=== PATIENT | male | born 1970 | race Caucasian/White ===

== ENCOUNTER 2018-07-05 21:43 | Inpatient (IN) | payer BC ==
[2018-07-05 21:50] VITALS: BMI 31.8
--- NOTE | 2018-07-05 22:11 | PDOC ---
History of Present Illness - General Chief Complaint: Pain Stated Complaint: PAIN Time Seen by Provider: 07/05/18 22:04 History Source: Patient Exam Limitations: No Limitations - History of Present Illness Initial Comments: 47 yo M w a pmh of diverticulitis, psoriasis, cellulitis, rhabdomyolysis presents to the ER with 2 days of Left Abdominal pain and scrotal pain. He states he woke up yesterday morning and he believes he sat down the wrong way when all of a sudden he began experiencing the left abdominal pain and the left scrotal pain. He thought it would go away but it didn't and the pain only worsened. Today he reports it has been difficult for him to sit down because his pain. The pain is 8/10 and is squeezing in character. The pain radiates to the suprapubic region. He has not taken any medications for the pain. The pain was bothering him to the point where he felt compelled to leave his super [employer] libertarian to come to the ED to be evaluated. He denies any associated fevers, nausea, vomiting, dysuria, frequency, urgency, hematuria, back pain, joint pain, chest pain, SOB, difficulty breathing, headache, diarrhea, constipation, or other concerns. PCP: Karlie Agosto PSH: None reported Social Hx: Smokes 1 PPD, drinks recreationally Allergies: NKA, NKDA Past History - Past Medical History Allergies/Adverse Reactions: Allergies Allergy/AdvReac Type Severity Reaction Status Date / Time No Known Allergies Allergy Verified 07/05/18 21:47 Home Medications: Ambulatory Orders Cephalexin [Keflex] 500 mg PO BID #8 capsule 10/12/14 levoFLOXacin [Levaquin -] 500 mg PO DAILY #10 tablet 07/06/18 Anemia: No Asthma: No COPD: No - Immunization History Immunization Up to Date: Yes - Suicide/Smoking/Psychosocial Hx Smoking History: Current every day smoker Have you smoked in the past 12 months: Yes Number of Cigarettes Smoked Daily: 10 Information on smoking cessation initiated: No 'Breaking Loose' booklet given: 10/08/14 Hx Alcohol Use: No Drug/Substance Use Hx: Yes (Marijuana) Substance Use Type: None Review of Systems - Review of Systems Able to Perform ROS?: Yes Comments:: CONSTITUTIONAL: Absent: fever, no chills, no fatigue EYES: Absent: visual changes ENT: Absent: ear pain, no sore throat CARDIOVASCULAR: Absent: chest pain, no palpitations RESPIRATORY: Absent: cough, no SOB GI: Present Abdominal pain, testicular pain Absent: ano nausea, no vomiting, no constipation, no diarrhea GENITOURINARY: Absent: dysuria, no frequency, no hematuria MUSKULOSKELETAL: Absent: back pain, no arthralgia, no myalgia SKIN: Absent: rash NEURO: Absent: headache *Physical Exam - Vital Signs Last Vital Signs Temp Pulse Resp BP Pulse Ox 97.9 F 119 H 20 148/77 96 07/05/18 21:48 07/05/18 21:48 07/05/18 21:48 07/05/18 21:48 07/05/18 21:48 - Physical Exam Comments: GENERAL: Well-appearing, well-nourished. No apparent distress. HEENT: Normocephalic, atraumatic. PERRL, EOM intact. CARDIOVASCULAR: Normal S1, S2. Tachycardic rate and regular rhythm. PULMONARY: No evidence of respiratory distress. Lungs clear to auscultation bilaterally. No wheezing, rales or rhonchi. ABDOMEN: Significant LLQ abdominal TTP. EXTREMITIES: Normal ROM in all four extremities. No gross deformities. SKIN: Warm, dry. No rash NEUROLOGICAL: No focal neurological deficits. Male Genitalia: positive: normal genitalia, testicular tenderness (Left sided), epididymus tender. negative: discharge, testicular mass, inguinal hernia, hernia, CVAT Moderate Sedation - Procedure Monitoring Vital Signs: Procedure Monitoring Vital Signs Temperature 97.9 F 07/05/18 21:48 Pulse Rate 119 H 07/05/18 21:48 Respiratory Rate 20 07/05/18 21:48 Blood Pressure 148/77 07/05/18 21:48 O2 Sat by Pulse Oximetry (%) 96 07/05/18 21:48 ED Treatment Course - LABORATORY CBC & Chemistry Diagram: 07/05/18 23:00 07/05/18 23:00 Medical Decision Making - Medical Decision Making 47 yo M w a pmh of psoriasis presents to the ER with 2 days of Left scrotal pain. - VS significant for tachycardia DDx IBNLT: Testicular torsion, epidydimitis, orchitis, mumps, hernia, UTI, kindey stones, prostatitis Plan: Labs, Urine, testicular US, analgesia, re-assess. Testicular US shows left sided varicocele Abdominal CTAP: - Received call from radiologist numerical control tool programmer - - Patient has diverticulitis. - Possible microperforation in one of the diverticula no abscess, no free air - Contained microperforation. Paged surgery - Dr. Juventino Castaneda. - He agrees with plan to start antibiotics in the ER Levo and flagyl - Will make patient NPO and start IV hydration. Patient iss Septic - Elevated WBC, tachycardic - Source of infection - Abdomen *DC/Admit/Observation/Transfer Diagnosis at time of Disposition: Diverticulitis of colon with perforation, Diverticulitis, Sepsis - Discharge Dispostion Condition at time of disposition: Guarded Decision to Admit order: Yes - Prescriptions Prescriptions: levoFLOXacin [Levaquin -] 500 mg PO DAILY #10 tablet - Referrals Referrals: Karlie Flores MD [Primary Care Provider] - - Patient Instructions - Post Discharge Activity
[2018-07-05] MEDS ORDERED: ACETAMINOPHEN 325 MG TABLET (FP) PO ONE (22:15)
[2018-07-05] MEDS ORDERED: ACETAMINOPHEN 325 MG TABLET (FP) ONE (22:23)
--- NOTE | 2018-07-05 23:05 | PDOC ---
Attending Attestation - [facility] HPI: 07/05/18 23:45 The patient is a 47 year old male with a significant past medical history of psoriasis, cellulitis, rhabdomyolysis who presents to the ED with 2 days of progressively worsening left scrotal pain. Patient reports a sudden onset of left sided scrotal pain after he sat down the wrong way. Patient states the pain is a 8/10, squeezing like sensation, worsened when sitting down and radiates to his suprapubic region. Denies fever or chills. Denies nausea, vomiting, or diarrhea. Denies dysuria, frequency, urgency, or hematuria. Denies chest pain or shortness of breath. Denies any other symptoms. - Physicial Exam PE: 07/06/18 00:19 GENERAL: Well developed, well nourished. Awake and alert. No acute distress. HEENT: Normocephalic, atraumatic. PERRLA, EOMI. No conjunctival pallor. Sclera are non- icteric. Moist mucous membranes. Oropharynx is clear. NECK: Supple. Full ROM. No JVD. Carotid pulses 2+ and symmetric, without bruits. No thyromegaly. No lymphadenopathy. CARDIOVASCULAR: Regular rate and rhythm. No murmurs, rubs, or gallops. Distal pulses are 2+ and symmetric. PULMONARY: No evidence of respiratory distress. Lungs clear to auscultation bilaterally. No wheezing, rales or rhonchi. ABDOMINAL: + rebound tenderness in the left lower quadrant. Soft. Non-distended. No rebound or guarding. No organomegaly. Normoactive bowel sounds. MUSCULOSKELETAL Normal range of motion at all joints. No bony deformities or tenderness. No CVA tenderness. EXTREMITIES: No cyanosis. No clubbing. No edema. No calf tenderness. SKIN: Warm and dry. Normal capillary refill. No rashes. No jaundice. NEUROLOGICAL: Alert, awake, appropriate. Cranial nerves 2-12 intact. No deficits to light touch and temperature in face, upper extremities and lower extremities. No motor deficits in the in face, upper extremities and lower extremities. Normoreflexic in the upper and lower extremities. Normal speech. Toes are down- going bilaterally. Gait is normal without ataxia. PSYCHIATRIC: Cooperative. Good eye contact. Appropriate mood and affect. <Yady De - Last Filed: 07/06/18 00:19> - Resident Resident Name: Khang Foster - ED Attending Attestation I have performed the following: I have examined & evaluated the patient, The case was reviewed & discussed with the resident, I agree w/resident's findings & plan, Exceptions are as noted - Medical Decision Making 07/06/18 02:39 ct scan findings: DIVERTICULITIS w possible micro perforation. Dr Juventino Castaneda, surgeon, was contacted and will be the cardiology consultant pt placed on antibiotics and admitted <Tiara Hare - Last Filed: 07/06/18 02:40> Attestations - Attestations 07/05/18 23:45 Documentation prepared by Yady De, acting as biomedical engineering technologist for Tiara Hare MD. <Yady De - Last Filed: 07/06/18 00:19>
[2018-07-05 23:34] LABS: URINE APPEARANCE CLEAR; URINE BILIRUBIN NEGATIVE (<2.0 mg/dL); URINE COLOR LTYELLOW; URINE GLUCOSE (UA) NEGATIVE (NEGATIVE); URINE KETONE NEGATIVE (NEGATIVE); URINE LEUK ESTERASE NEGATIVE (NEGATIVE); URINE NITRITE NEGATIVE (NEGATIVE); URINE PROTEIN NEGATIVE (NEGATIVE); URINE UROBILINOGEN NEGATIVE mg/dL (0.2-1.0)
[2018-07-05 23:50] LABS: EOS % 0.7 % (0-4.5); HEMATOCRIT 45.6 % (35.4-49); HEMOGLOBIN 16.3 GM/dL (11.7-16.9); LYMPH % 15.6 % (8-40); MCH 31.7 pg (25.7-33.7); MCHC 35.8 g/dl (32.0-35.9); MEAN CELL VOLUME 88.5 fl (80-96); MEAN PLT VOLUME 9.8 fl (7.5-11.1); MONO % 5.9 % (3.8-10.2); NEUT % 76.8 % (42.8-82.8); PLATELET COUNT 189 K/MM3 (134-434); RBC 5.16 M/mm3 (4.00-5.60); RDW 13.3 % (11.9-15.9); WHITE BLOOD COUNT 16.2 K/mm3 (4.0-10.0)
[2018-07-06] MEDS ORDERED: KETOROLAC TROMETHAMINE 30 MG/1 ML VIAL IVPUSH ONE (00:10)
[2018-07-06 00:16] LABS: ALK PHOS 84 U/L (45-117); ANION GAP 6 MMOL/L (8-16); BILIRUBIN,TOTAL 0.3 mg/dL (0.2-1); BLOOD UREA NITROGEN 19 mg/dL (7-18); CALCIUM 8.4 mg/dL (8.5-10.1); CHLORIDE 110 mmol/L (98-107); CO2 25 mmol/L (21-32); CREATININE 1.1 mg/dL (0.55-1.3); GLUCOSE,RANDOM 101 mg/dL (74-106); SGOT/AST 16 U/L (15-37); SGPT/ALT 28 U/L (13-61); SODIUM 141 mmol/L (136-145); TOT PROT 7.3 g/dl (6.4-8.2)
[2018-07-06] MEDS ORDERED: SODIUM CHLORIDE 1,000 ML IV STA (00:18)
[2018-07-06] MEDS ORDERED: KETOROLAC TROMETHAMINE 30 MG/1 ML VIAL ONE (01:00)
[2018-07-06] MEDS ORDERED: ACETAMINOPHEN 325 MG TABLET (FP) ONE (01:00)
[2018-07-06] MEDS: SODIUM CHLORIDE 1,000 ML IV SCH ×2 (02:46→11:11)
--- NOTE | 2018-07-06 03:52 | PN ---
Teaching Attending Note Name of Resident: Radha Gutierres ATTENDING PHYSICIAN STATEMENT I saw and evaluated the patient. I reviewed the resident's note and discussed the case with the resident. I agree with the resident's findings and plan as documented. SUBJECTIVE: Patient is a 47 year old man with PMH of diverticulitis, tobacco use, psoriasis , cellulitis and rhabdomyolysis who presents to the ER with 2 days of left abdominal pain and left scrotal pain. He states he woke up yesterday morning and he believes he sat down the wrong way when all of a sudden he began experiencing the left abdominal pain and the left scrotal pain. He thought it would go away but it didn't and the pain only worsened. Today he reports it has been difficult for him to sit down because his pain. The pain is 8/10 and is squeezing in character. The pain radiates to the suprapubic region. He has not taken any medications for the pain. 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 He denies any associated fevers, nausea, vomiting, dysuria, frequency , urgency, hematuria, back pain, joint pain, chest pain, SOB, difficulty breathing, headache, diarrhea or constipation. OBJECTIVE: Alert Vital Signs Period Temp Pulse Resp BP Sys/Giraldo Pulse Ox Last 24 Hr 97.9 F 119 20 148/77 96 HEENT: No Jaundice, eye redness or discharge, PERRLA, EOMI. Normocephalic, atraumatic. External ears are normal and hearing is grossly intact. No nasal discharge. Neck: Supple, nontender. No palpable adenopathy or thyromegaly. No JVD Chest: Good effort. Clear to auscultation and percussion. Heart: Regular. No S3, rub or murmur Abdomen: Not distended, soft, LLQ tenderness and no HSM. No rebound or guarding. Normoactive bowel sounds. Ext: Peripheral pulses intact. No leg edema. Tender left scrotum. Skin: Warm and dry. No petechiae, rash or ecchymosis. Neuro: Alert. Oriented x3. CN 2-12 grossly intact. Sensation grossly intact in all four extremities and DTR are symmetric. Current Medications Generic Name Dose Route Start Last Admin Trade Name Freq PRN Reason Stop Dose Admin Sodium Chloride 1,000 mls @ 125 mls/hr 07/06/18 01:45 Normal Saline - IV ASDIR [facility] Home Medications Medication Instructions Recorded Cephalexin [Keflex] 500 mg PO BID #8 capsule 10/12/14 levoFLOXacin [Levaquin -] 500 mg PO DAILY #10 tablet 07/06/18 Abnormal Lab Results 07/05/18 07/05/18 23:00 23:00 WBC 16.2 H Absolute Neuts (auto) 12.4 H Chloride 110 H Anion Gap 6 L BUN 19 H Calcium 8.4 L ASSESSMENT AND PLAN: 1. Sepsis due to Sigmoid diverticulitis with microperforation - Findings confirmed by CT scan - no abscess and no free peritoneal air. EKG pending to rule out prolonged QTc. Sepsis work up done and INR pending. Being kept NPO and treated with IV NS, flagyl, levofloxacin and toradol for pain control. Surgery consulted. Will need outpatient colonoscopy after resolution of diverticulitis. Sonogram shows left testicular varicocele. Referred pain may also partly explain testicular pain and there have been multiple reports of scrotal pain in persons with sigmoid diverticulitis. Will do scrotal elevation and consult urology. 2. Tobacco Use We will provide patient all the necessary assistance to facilitate smoking cessation and prescribe Nicotine patch. 3. Obesity - Will provide patient all the necessary assistance, counseling and positive reinforcement to facilitate weight loss. Consult edge glue machine tender. 4. DVT prophylaxis - Lovenox 40 mg SQ q 24 hours. 5. Advance directives - Full code
[2018-07-06] MEDS ORDERED: KETOROLAC TROMETHAMINE 10 MG TABLET PO PRN (04:20)
--- NOTE | 2018-07-06 04:41 | HP ---
CHIEF COMPLAINT: diverticulitis w/microperf PCP: Dr. Agosto HISTORY OF PRESENT ILLNESS: 47 y/o M with PMH diverticulitis, psoriasis (not on tx), past admissions for cellulitis, rhabdo, who presents for 1 day hx LLQ pain. As per pt, yesterday AM , pt developed sudden LLQ pain that was sharp, constant, and a 5/10. As the day progressed, pt attended a [employer] green party and while there ate sandwiches. Soon after, his pain became an 8/10, thus he decided to come to the ED for further evaluation. At the time, his LLQ pain radiated into his L scrotal region. Denies MEDEIROS, fever, chills, SOB, chest pain or pressure, or changes in urinary or bowel function. States that he had a flare of diverticulitis 6-8 yrs ago, and was tx with IV abx and d/c home the following day. Was not complicated by fistula, abscess or microperforation. Does not recall which hospital he was seen at. Also mentions that he had a colonoscopy ~6 yrs ago. 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 confirmed verbally REVIEW OF SYSTEMS CONSTITUTIONAL: Absent: fever, chills, diaphoresis, generalized weakness, malaise, loss of appetite, weight change HEENT: Absent: rhinorrhea, nasal congestion, throat pain, throat swelling, difficulty swallowing, mouth swelling, ear pain, eye pain, visual changes CARDIOVASCULAR: Absent: chest pain, syncope, palpitations, irregular heart rate, lightheadedness , peripheral edema RESPIRATORY: Absent: cough, shortness of breath, dyspnea with exertion, orthopnea, wheezing, stridor, hemoptysis GASTROINTESTINAL: +abdominal pain Absent: abdominal pain, abdominal distension, nausea, vomiting, diarrhea, constipation, melena, hematochezia GENITOURINARY: +scrotal pain Absent: dysuria, frequency, urgency, hesitancy, hematuria, flank pain, genital pain MUSCULOSKELETAL: Absent: myalgia, arthralgia, joint swelling, back pain, neck pain SKIN: Absent: rash, itching, pallor HEMATOLOGIC/IMMUNOLOGIC: Absent: easy bleeding, easy bruising, lymphadenopathy, frequent infections ENDOCRINE: Absent: unexplained weight gain, unexplained weight loss, heat intolerance, cold intolerance NEUROLOGIC: Absent: headache, focal weakness or paresthesias, dizziness, unsteady gait, seizure, mental status changes, bladder or bowel incontinence PSYCHIATRIC: Absent: anxiety, depression, suicidal or homicidal ideation, hallucinations. PHYSICAL EXAMINATION Vital Signs - 24 hr 07/05/18 21:48 Temperature 97.9 F Pulse Rate 119 H Respiratory 20 Rate Blood Pressure 148/77 O2 Sat by Pulse 96 Oximetry (%) GENERAL: Resting calmly in bed. Awake, alert, and fully oriented, in no acute distress. HEAD: Normal with no signs of trauma. EYES: Pupils equal, round and reactive to light, extraocular movements intact, sclera anicteric, conjunctiva clear. EARS, NOSE, THROAT: Ears normal, nares patent, oropharynx clear without exudates. Moist mucous membranes. NECK: Normal range of motion, supple LUNGS: Breath sounds equal, clear to auscultation bilaterally. No wheezes, and no crackles. No accessory muscle use. HEART: Regular rate and rhythm, normal S1 and S2 without murmur, rub or gallop. ABDOMEN: Soft, normoactive bowel sounds. +point tenderness suprapubic region, + LLQ. +guarding GENITUOURINARY: refused scrotal exam LOWER EXTREMITIES: 2+ pt pulses, warm, well-perfused. No calf tenderness. No peripheral edema. NEUROLOGICAL: Cranial nerves II-XII intact. 5/5 motor strength in UE, LE PSYCHIATRIC: Cooperative. Good eye contact. SKIN: Warm, dry, normal turgor Laboratory Results - last 24 hr 07/05/18 07/05/18 07/05/18 23:00 23:00 23:23 WBC 16.2 H RBC 5.16 Hgb 16.3 Hct 45.6 D MCV 88.5 MCH 31.7 MCHC 35.8 RDW 13.3 Plt Count 189 MPV 9.8 Absolute Neuts (auto) 12.4 H Neutrophils % 76.8 Lymphocytes % 15.6 D Monocytes % 5.9 Eosinophils % 0.7 Basophils % 1.0 Nucleated RBC % 0 Sodium 141 Potassium 4.0 Chloride 110 H Carbon Dioxide 25 Anion Gap 6 L BUN 19 H Creatinine 1.1 Creat Clearance w eGFR > 60 Random Glucose 101 Calcium 8.4 L Total Bilirubin 0.3 AST 16 ALT 28 Alkaline Phosphatase 84 Total Protein 7.3 Albumin 4.0 Urine Color Ltyellow Urine Appearance Clear Urine pH 6.0 Ur Specific [place] 1.020 Urine Protein Negative Urine Glucose (UA) Negative Urine Ketones Negative Urine Blood Negative Urine Nitrite Negative Urine Bilirubin Negative Urine Urobilinogen Negative Ur Leukocyte Esterase Negative CTAP prelim: sigmoid diverticulitis with microperforation; small focus of air beyond sigmoid diverticulum. without abscess or free air. follow official read EKG: NSR, without acute ST-T wave changes. Qtc 417ms ASSESSMENT/PLAN: 47 y/o M with PMH diverticulitis, psoriasis (not on tx), past admissions for cellulitis, rhabdo, who presents for 1 day hx LLQ pain. #sepsis 2/2 acute sigmoid diverticulitis, with microperforation -with hx past ep diverticulitis, responded to IV abx -will c/w levaquin 750mg IVPB qd, flagyl 500 IVPB TID . to cover for gram (-), anaerobes -NPO for bowel rest -IVF, toradol for pain control -Surgery consult: Dr. Castaneda. case d/w ED staff, will see pt in AM -less likely for OR, however will do T+S, coags in case #L sided varicocele -possibly incidental -chronic constipation a/w diverticulitis can be risk fx L varicocele, affecting L testic vein -will consult urology: Dr. Arita. crm functional analyst #psoriasis -not on tx #F/E/N IV NS 125 cc/hr continue to follow lytes npo #PPX lovenox #dispo admit to M/S to be seen by sx in AM ; determine whether needs intervention follow WBC count, tachycardia Visit type - Emergency Visit Emergency Visit: Yes ED Registration Date: 07/06/18 Care time: The patient presented to the Emergency Department on the above date and was hospitalized for further evaluation of their emergent condition. - New Patient This patient is new to me today: Yes Date on this admission: 07/06/18 - Critical Care Critical Care patient: No
[2018-07-06 05:27] LABS: BASO % 0.2 % (0-2.0); EOS % 1.3 % (0-4.5); HEMATOCRIT 40.3 % (35.4-49); HEMOGLOBIN 14.2 GM/dL (11.7-16.9); LYMPH % 25.5 % (8-40); MCH 30.9 pg (25.7-33.7); MCHC 35.2 g/dl (32.0-35.9); MEAN CELL VOLUME 87.9 fl (80-96); MONO % 7.5 % (3.8-10.2); NEUT % 65.5 % (42.8-82.8); PLATELET COUNT 157 K/MM3 (134-434); RBC 4.59 M/mm3 (4.00-5.60); RDW 13.2 % (11.9-15.9); WHITE BLOOD COUNT 12.5 K/mm3 (4.0-10.0)
[2018-07-06 05:31] LABS: INR 1.11 (0.83-1.09); PROTHROMBIN TIME (PATIENT) 13.1 SEC (9.7-13.0)
[2018-07-06 05:34] LABS: ACTIVATED PTT 31.1 SECONDS (25.2-36.5)
[2018-07-06 05:46] LABS: ANION GAP 5 MMOL/L (8-16); BLOOD UREA NITROGEN 15 mg/dL (7-18); CALCIUM 7.4 mg/dL (8.5-10.1); CHLORIDE 113 mmol/L (98-107); CO2 24 mmol/L (21-32); GLUCOSE,RANDOM 104 mg/dL (74-106); PHOSPHOROUS 3.2 mg/dL (2.5-4.9); POTASSIUM 3.7 mmol/L (3.5-5.1); SODIUM 142 mmol/L (136-145)
--- NOTE | 2018-07-06 09:50 | EKG ---
Test Reason : Blood Pressure : / mmHG Vent. Rate : 074 BPM Atrial Rate : 074 BPM P-R Int : 164 ms QRS Dur : 090 ms QT Int : 376 ms P-R-T Axes : 034 027 023 degrees QTc Int : 417 ms NORMAL SINUS RHYTHM NORMAL ECG NO PREVIOUS ECGS AVAILABLE Confirmed by BETTY NARVAEZ MD ([id number]) on 07/06/2018 9:49:38 AM Referred By: Confirmed By:BETTY NARVAEZ MD
[2018-07-06] MEDS: ENOXAPARIN NA (PORCINE) 40 MG/0.4 ML DISP.SYRIN SQ SCH (10:50)
[2018-07-06] MEDS ORDERED: MORPHINE SULFATE 2 MG/ML VIAL IVPUSH PRN (11:00)
--- NOTE | 2018-07-06 12:22 | CONSULT ---
Consult Reason for Consultation:: Acute diverticulitis - History of Present Illness History of Present Illness: The patient is a 47 year old male with a significant past medical history of psoriasis, cellulitis, rhabdomyolysis who presents to the ED with 2 days of progressively worsening left scrotal pain. Patient reports a sudden onset of left sided scrotal pain after he sat down the wrong way. Patient states the pain is a 8/10, squeezing like sensation, worsened when sitting down and radiates to his suprapubic region. Denies fever or chills. Denies nausea, vomiting, or diarrhea. Denies dysuria, frequency, urgency, or hematuria. Denies chest pain or shortness of breath. Denies any other symptoms. - History Source History Provided By: Patient - Past Medical History ENT: Yes: Allergic Rhinitis, Sinusitis Additional Medical History: tatoos- all old - Past Surgical History Past Surgical History: Yes: None - Alcohol/Substance Use Hx Alcohol Use: No - Smoking History Smoking history: Current every day smoker Have you smoked in the past 12 months: Yes Aproximately how many cigarettes per day: 10 - Social History Usual Living Arrangement: With Spouse ADL: Independent Occupation: on site property manager Home Medications - Allergies Allergies/Adverse Reactions: Allergies Allergy/AdvReac Type Severity Reaction Status Date / Time No Known Allergies Allergy Verified 07/05/18 21:47 - Home Medications Home Medications: Ambulatory Orders Cephalexin [Keflex] 500 mg PO BID #8 capsule 10/12/14 levoFLOXacin [Levaquin -] 500 mg PO DAILY #10 tablet 07/06/18 Review of Systems - Review of Systems Gastrointestinal: reports: Abdominal Pain Genitourinary: reports: Testicular Pain Physical Exam Vital Signs: Vital Signs Temperature 98.6 F 07/06/18 09:00 Pulse Rate 71 07/06/18 09:00 Respiratory Rate 16 07/06/18 09:00 Blood Pressure 143/82 07/06/18 09:00 O2 Sat by Pulse Oximetry (%) 96 07/06/18 05:24 Constitutional: Yes: Well Nourished, No Distress Eyes: Yes: Conjunctiva Clear HENT: Yes: Normocephalic Neck: Yes: Supple Cardiovascular: Yes: Regular Rate and Rhythm Respiratory: Yes: CTA Bilaterally Gastrointestinal: Yes: Soft, Abdomen, Obese, Tenderness (at LLQ) Labs: CBC, BMP 07/06/18 05:10 07/06/18 05:10 Imaging - Results Cat Scan: Report Reviewed, Image Reviewed Problem List - Problems (1) Diverticulitis of colon with perforation Assessment/Plan: [place] 1 perfoarated diverticulitis Continue IV abx and bowel rest May start liquid diet when clinically improved No surgical intervention necessary at this time GI, DVT prophylaxis Code(s): K57.20 - DVTRCLI OF LG INT W PERFORATION AND ABSCESS W/O BLEEDING
--- NOTE | 2018-07-06 14:17 | CON.GI ---
Consult Consult Specialty:: GI Referred by:: Medicine Reason for Consultation:: acute sigmoid diverticulitis w microperforation - History of Present Illness Chief Complaint: LLQ/suprapubic pain History of Present Illness: 47M admitted for acute onset LLQ/suprapubic pain Friday. Initially thought it was due to [place] he had eaten the night before, but pain did not remit after bm and worsened so came to hospital. No fevers/chills. reports he had colonoscopy 8-9 years ago after what sounds like diverticulitis and antibiotic treatment, nothing found except diverticulosis. Pt denies rectal bleeding, weight loss. Was fine until yesterday. - History Source History Provided By: Patient Limitations to Obtaining History: No Limitations - Past Medical History ENT: Yes: Allergic Rhinitis, Sinusitis Additional Medical History: tatoos- all old - Past Surgical History Past Surgical History: Yes: None - Alcohol/Substance Use Hx Alcohol Use: No - Smoking History Smoking history: Current every day smoker Have you smoked in the past 12 months: Yes Aproximately how many cigarettes per day: 10 - Social History Usual Living Arrangement: With Spouse ADL: Independent Occupation: on site property manager Home Medications - Allergies Allergies/Adverse Reactions: Allergies Allergy/AdvReac Type Severity Reaction Status Date / Time No Known Allergies Allergy Verified 07/05/18 21:47 - Home Medications Home Medications: Ambulatory Orders Cephalexin [Keflex] 500 mg PO BID #8 capsule 10/12/14 levoFLOXacin [Levaquin -] 500 mg PO DAILY #10 tablet 07/06/18 Review of Systems - Review of Systems Constitutional: reports: Chills, Fever Eyes: reports: No Symptoms Cardiovascular: reports: No Symptoms Respiratory: reports: No Symptoms Gastrointestinal: reports: Abdominal Pain Musculoskeletal: reports: No Symptoms Physical Exam-GI Vital Signs: Vital Signs Temperature 98.6 F 07/06/18 09:00 Pulse Rate 71 07/06/18 09:00 Respiratory Rate 16 07/06/18 09:00 Blood Pressure 143/82 07/06/18 09:00 O2 Sat by Pulse Oximetry (%) 96 07/06/18 05:24 Constitutional: Yes: Well Nourished, No Distress Eyes: Yes: Conjunctiva Clear Cardiovascular: Yes: Regular Rate and Rhythm Respiratory: Yes: CTA Bilaterally ...Palpate: Yes: Soft. No: Tenderness (suprapubic with voluntary guarding) ...Rectal Exam: Yes: Deferred Edema: No Labs: CBC, BMP 07/06/18 05:10 07/06/18 05:10 INR, PTT INR 1.11 (0.83-1.09) H 07/06/18 05:00 Imaging - Results Cat Scan: Report Reviewed Assessment/Plan Acute sigmoid diverticulitis with microperforation. Second episode - last sounds like acute uncomplicated diverticulitis 9 years ago. Well appearing. Continue antibiotics Would need outpatient colonoscopy after resolution of diverticulitis to rule out lesion - around 6-8 weeks Please call back with questions
[2018-07-06] MEDS: NICOTINE 21 MG/24 HOURS TOPICAL PATCH TD SCH (15:25)
--- NOTE | 2018-07-06 15:26 | PN ---
Physical Exam: SUBJECTIVE: Patient seen and examined. No acute events overnight. Still admits to persistent suprapubic pain when palpated. Denies f/c, n/v, chest pain, sob. + flatus, no BM. OBJECTIVE: Last Vital Signs Temp Pulse Resp BP Pulse Ox 98.1 F 86 18 145/69 96 07/06/18 14:24 07/06/18 14:24 07/06/18 14:24 07/06/18 14:24 07/06/18 05:24 GENERAL: Resting calmly in bed. Awake, alert, and fully oriented, in no acute distress. HEAD: Normal with no signs of trauma. EYES: Pupils equal, round and reactive to light, extraocular movements intact, sclera anicteric, conjunctiva clear. EARS, NOSE, THROAT: Ears normal, nares patent, oropharynx clear without exudates. Moist mucous membranes. NECK: Normal range of motion, supple LUNGS: Breath sounds equal, clear to auscultation bilaterally. No wheezes, and no crackles. No accessory muscle use. HEART: Regular rate and rhythm, normal S1 and S2 without murmur, rub or gallop. ABDOMEN: Soft, normoactive bowel sounds. +point tenderness suprapubic region, + LLQ. +guarding GENITUOURINARY: L-sided varicocele, nontender. LOWER EXTREMITIES: 2+ pt pulses, warm, well-perfused. No calf tenderness. No peripheral edema. NEUROLOGICAL: Cranial nerves II-XII intact. 5/5 motor strength in UE, LE PSYCHIATRIC: Cooperative. Good eye contact. SKIN: Warm, dry, normal turgor CBC, BMP 07/06/18 05:10 07/06/18 05:10 Active Medications Enoxaparin Sodium (Lovenox -) 40 mg SQ DAILY [facility] Last Admin: 07/06/18 10:50 Dose: 40 mg Sodium Chloride (Normal Saline -) 1,000 mls @ 125 mls/hr IV ASDIR PENDING SALE TO [facility] Last Admin: 07/06/18 11:11 Dose: 125 mls/hr Metronidazole (Flagyl 500mg Premixed Ivpb -) 500 mg in 100 mls @ 100 mls/hr IVPB Q8H-IV KAYLA Last Admin: 07/06/18 10:50 Dose: 100 mls/hr Morphine Sulfate (Morphine Sulfate) 2 mg IVPUSH Q4H PRN PRN Reason: PAIN LEVEL 6-10 Nicotine (Nicoderm Patch -) 21 mg TD DAILY KAYLA CONSULTS Surg- Dr. Castaneda GI- Dr. Lyons IMAGING: * CTAP prelim: sigmoid diverticulitis with microperforation; small focus of air beyond sigmoid diverticulum. without abscess or free air. follow official read * EKG: NSR, without acute ST-T wave changes. Qtc 417ms ASSESSMENT/PLAN: 47 y/o M with PMH diverticulitis, psoriasis (not on tx), past admissions for cellulitis, rhabdo, who presents for 1 day hx LLQ pain admitted for acute sigmoid diverticulitis. #Sepsis 2/2 acute sigmoid diverticulitis, with microperforation -Per surg, cont IV abx and bowel rest; may start liquid diet when clinically improved. No surg intervention at this time. -Per GI, would need outpatient colonoscopy after resolution of diverticulitis to rule out lesion - around 6-8 weeks -Cont Flagyl 500 mg IVPB Q8H, Levaquin 500 mg IVPB QD -NPO for bowel rest -Morphine 2 Q4H IVP for pain #L-sided varicocele -possibly incidental -chronic constipation a/w diverticulitis can be risk fx L varicocele, affecting L testic vein -f/u as outpatient #Psoriasis -not on tx #F/E/N -IV NS 125 cc/hr -continue to follow lytes -npo, can start CLD when pt's symptoms stable #PPX -Lovenox #dispo -monitor on med-surg Visit type - Emergency Visit Emergency Visit: Yes ED Registration Date: 07/06/18 Care time: The patient presented to the Emergency Department on the above date and was hospitalized for further evaluation of their emergent condition. - New Patient This patient is new to me today: Yes Date on this admission: 07/06/18 - Critical Care Critical Care patient: No
[2018-07-06] MEDS ORDERED: ACETAMINOPHEN 1000 MG/100 ML VIAL (NON FORMULARY) IVPB PRN (18:18)
--- NOTE | 2018-07-06 19:29 | PN ---
Teaching Attending Note Name of Resident: Luci Alexandre ATTENDING PHYSICIAN STATEMENT I saw and evaluated the patient. I reviewed the resident's note and discussed the case with the resident. I agree with the resident's findings and plan as documented. SUBJECTIVE: Patient feels better but pain on palpation suprapubic area, OBJECTIVE: Vital Signs Temperature 98.7 F 07/06/18 18:38 Pulse Rate 81 07/06/18 18:38 Respiratory Rate 18 07/06/18 18:43 Blood Pressure 111/73 07/06/18 18:38 O2 Sat by Pulse Oximetry (%) 98 07/06/18 18:43 GENERAL: Resting calmly in bed. Awake, alert, and fully oriented, in no acute distress. HEAD: Normal with no signs of trauma. EYES: Pupils equal, round and reactive to light, extraocular movements intact, sclera anicteric, conjunctiva clear. EARS, NOSE, THROAT: Ears normal, nares patent, oropharynx clear without exudates. Moist mucous membranes. NECK: Normal range of motion, supple LUNGS: Breath sounds equal, clear to auscultation bilaterally. No wheezes, and no crackles. No accessory muscle use. HEART: Regular rate and rhythm, normal S1 and S2 without murmur, rub or gallop. ABDOMEN: Soft, normoactive bowel sounds. positive for tenderness suprapubic area. No guarding. no rebound. GENITUOURINARY: refused scrotal exam EXTREMITIES: positive for pulses, warm, well-perfused. No calf tenderness. No peripheral edema. NEUROLOGICAL: Cranial nerves II-XII intact. 5/5 motor strength in UE, LE PSYCHIATRIC: Cooperative. Good eye contact. SKIN: Warm, dry, normal turgor CBCD WBC 12.5 K/mm3 (4.0-10.0) H 07/06/18 05:10 RBC 4.59 M/mm3 (4.00-5.60) 07/06/18 05:10 Hgb 14.2 GM/dL (11.7-16.9) 07/06/18 05:10 Hct 40.3 % (35.4-49) 07/06/18 05:10 MCV 87.9 fl (80-96) 07/06/18 05:10 MCHC 35.2 g/dl (32.0-35.9) 07/06/18 05:10 RDW 13.2 % (11.9-15.9) 07/06/18 05:10 Plt Count 157 K/MM3 (134-434) 07/06/18 05:10 MPV 9.0 fl (7.5-11.1) 07/06/18 05:10 CMP Sodium 142 mmol/L (136-145) 07/06/18 05:10 Potassium 3.7 mmol/L (3.5-5.1) 07/06/18 05:10 Chloride 113 mmol/L (98-107) H 07/06/18 05:10 Carbon Dioxide 24 mmol/L (21-32) 07/06/18 05:10 Anion Gap 5 MMOL/L (8-16) L 07/06/18 05:10 BUN 15 mg/dL (7-18) 07/06/18 05:10 Creatinine 1.0 mg/dL (0.55-1.3) 07/06/18 05:10 Creat Clearance w eGFR > 60 (>60) 07/06/18 05:10 Random Glucose 104 mg/dL (74-106) 07/06/18 05:10 Calcium 7.4 mg/dL (8.5-10.1) L 07/06/18 05:10 Total Bilirubin 0.3 mg/dL (0.2-1) 07/05/18 23:00 AST 16 U/L (15-37) 07/05/18 23:00 ALT 28 U/L (13-61) 07/05/18 23:00 Alkaline Phosphatase 84 U/L (45-117) 07/05/18 23:00 Total Protein 7.3 g/dl (6.4-8.2) 07/05/18 23:00 Albumin 4.0 g/dl (3.4-5.0) 07/05/18 23:00 Current Medications Generic Name Dose Route Start Last Admin Trade Name Freq PRN Reason Stop Dose Admin Acetaminophen 1,000 mg 07/06/18 18:18 07/06/18 18:59 Ofirmev Injection - IVPB 1,000 mg Q8H PRN Administration pain/fever Enoxaparin Sodium 40 mg 07/06/18 10:00 07/06/18 10:50 Lovenox - SQ 40 mg DAILY KAYLA Administration Sodium Chloride 1,000 mls @ 125 mls/hr 07/06/18 01:45 07/06/18 11:11 Normal Saline - IV 125 mls/hr ASDIR KAYLA Administration Metronidazole 500 mg in 100 mls @ 100 mls/hr 07/06/18 10:00 07/06/18 18:06 Flagyl 500mg Premixed Ivpb - IVPB 100 mls/hr Q8H-IV KAYLA Administration Levofloxacin 500 mg in 100 mls @ 100 mls/hr 07/06/18 16:44 07/06/18 17:15 Levaquin 500 Mg Premixed Ivpb - IVPB 100 mls/hr DAILY KAYLA Administration Protocol Morphine Sulfate 2 mg 07/06/18 11:00 Morphine Sulfate IVPUSH Q4H PRN PAIN LEVEL 6-10 Nicotine 21 mg 07/06/18 13:45 07/06/18 15:25 Nicoderm Patch - TD Not Given DAILY KAYLA Home Medications Medication Instructions Recorded Cephalexin [Keflex] 500 mg PO BID #8 capsule 10/12/14 levoFLOXacin [Levaquin -] 500 mg PO DAILY #10 tablet 07/06/18 ASSESSMENT AND PLAN: 47 y/o M with PMHx of diverticulitis, psoriasis (not on tx), past admissions for cellulitis, rhabdo, who presents for 1 day hx LLQ pain admitted for acute sigmoid diverticulitis. #Sepsis due to acute sigmoid diverticulitis with microperforation: On IV antibiotics Levaquin and Flagyl continue, on IVF, surgeon , not to start feeding until the patient is pain free. Only clears once the patient is pain free. IV NS 125 cc/hr #L-sided varicocele incidental findings # chronic constipation w/u as an outpatient #Hx of Psoriasis: stable now. DVT PPX: Lovenox
[2018-07-07] MEDS: SODIUM CHLORIDE 1,000 ML IV SCH ×2 (02:00→17:08)
[2018-07-07 08:04] LABS: ANION GAP 7 MMOL/L (8-16); BLOOD UREA NITROGEN 13 mg/dL (7-18); CALCIUM 8.4 mg/dL (8.5-10.1); CHLORIDE 112 mmol/L (98-107); CO2 23 mmol/L (21-32); CREATININE 0.9 mg/dL (0.55-1.3); GLUCOSE,RANDOM 85 mg/dL (74-106); SODIUM 142 mmol/L (136-145)
[2018-07-07 08:07] LABS: HEMATOCRIT 39.6 % (35.4-49); HEMOGLOBIN 14.3 GM/dL (11.7-16.9); MCH 31.9 pg (25.7-33.7); MCHC 36.1 g/dl (32.0-35.9); MEAN CELL VOLUME 88.4 fl (80-96); PLATELET COUNT 156 K/MM3 (134-434); RBC 4.49 M/mm3 (4.00-5.60); RDW 13.2 % (11.9-15.9); WHITE BLOOD COUNT 10.1 K/mm3 (4.0-10.0)
--- NOTE | 2018-07-07 08:30 | PN ---
Teaching Attending Note Name of Resident: Luci Alexandre ATTENDING PHYSICIAN STATEMENT I saw and evaluated the patient. I reviewed the resident's note and discussed the case with the resident. I agree with the resident's findings and plan as documented. SUBJECTIVE: Patient is asymptomatic today , no further pain noted, no fever or chill. OBJECTIVE: Vital Signs Temperature 98.5 F 07/07/18 07:59 Pulse Rate 74 07/07/18 07:59 Respiratory Rate 20 07/07/18 07:59 Blood Pressure 129/80 07/07/18 07:59 O2 Sat by Pulse Oximetry (%) 96 07/06/18 23:45 GENERAL: Resting calmly in bed. Awake, alert, and fully oriented, in no acute distress. HEAD: Normal with no signs of trauma. EYES: Pupils equal, round and reactive to light, extraocular movements intact, sclera anicteric, conjunctiva clear. EARS, NOSE, THROAT: Ears normal, oropharynx clear without exudates. Moist mucous membranes. NECK: Normal range of motion, supple LUNGS: Breath sounds equal, clear to auscultation bilaterally. No wheezes, and no crackles. No accessory muscle use. HEART: Regular rate and rhythm, normal S1 and S2 without murmur, rub or gallop. ABDOMEN: Soft, normoactive bowel sounds. NT, NR today , ND , No guarding. no rebound. EXTREMITIES: positive for pulses, warm, well-perfused. No calf tenderness. No peripheral edema. NEUROLOGICAL: Cranial nerves II-XII intact. 5/5 motor strength in UE, LE PSYCHIATRIC: Cooperative. Good eye contact. SKIN: Warm, dry, normal turgor CBCD WBC 10.1 K/mm3 (4.0-10.0) H 07/07/18 06:30 RBC 4.49 M/mm3 (4.00-5.60) 07/07/18 06:30 Hgb 14.3 GM/dL (11.7-16.9) 07/07/18 06:30 Hct 39.6 % (35.4-49) 07/07/18 06:30 MCV 88.4 fl (80-96) 07/07/18 06:30 MCHC 36.1 g/dl (32.0-35.9) H 07/07/18 06:30 RDW 13.2 % (11.9-15.9) 07/07/18 06:30 Plt Count 156 K/MM3 (134-434) 07/07/18 06:30 MPV 10.0 fl (7.5-11.1) D 07/07/18 06:30 CMP Sodium 142 mmol/L (136-145) 07/07/18 06:30 Potassium 4.0 mmol/L (3.5-5.1) 07/07/18 06:30 Chloride 112 mmol/L (98-107) H 07/07/18 06:30 Carbon Dioxide 23 mmol/L (21-32) 07/07/18 06:30 Anion Gap 7 MMOL/L (8-16) L 07/07/18 06:30 BUN 13 mg/dL (7-18) 07/07/18 06:30 Creatinine 0.9 mg/dL (0.55-1.3) 07/07/18 06:30 Creat Clearance w eGFR > 60 (>60) 07/07/18 06:30 Random Glucose 85 mg/dL (74-106) 07/07/18 06:30 Calcium 8.4 mg/dL (8.5-10.1) L 07/07/18 06:30 Total Bilirubin 0.3 mg/dL (0.2-1) 07/05/18 23:00 AST 16 U/L (15-37) 07/05/18 23:00 ALT 28 U/L (13-61) 07/05/18 23:00 Alkaline Phosphatase 84 U/L (45-117) 07/05/18 23:00 Total Protein 7.3 g/dl (6.4-8.2) 07/05/18 23:00 Albumin 4.0 g/dl (3.4-5.0) 07/05/18 23:00 Current Medications Generic Name Dose Route Start Last Admin Trade Name Freq PRN Reason Stop Dose Admin Acetaminophen 1,000 mg 07/06/18 18:18 07/06/18 18:59 Ofirmev Injection - IVPB 1,000 mg Q8H PRN Administration pain/fever Enoxaparin Sodium 40 mg 07/06/18 10:00 07/06/18 10:50 Lovenox - SQ 40 mg DAILY KAYLA Administration Sodium Chloride 1,000 mls @ 125 mls/hr 07/06/18 01:45 07/07/18 02:00 Normal Saline - IV 125 mls/hr ASDIR KAYLA Administration Metronidazole 500 mg in 100 mls @ 100 mls/hr 07/06/18 10:00 07/07/18 01:22 Flagyl 500mg Premixed Ivpb - IVPB 100 mls/hr Q8H-IV KAYLA Administration Levofloxacin 500 mg in 100 mls @ 100 mls/hr 07/06/18 16:44 07/06/18 17:15 Levaquin 500 Mg Premixed Ivpb - IVPB 100 mls/hr DAILY KAYLA Administration Protocol Morphine Sulfate 2 mg 07/06/18 11:00 Morphine Sulfate IVPUSH Q4H PRN PAIN LEVEL 6-10 Nicotine 21 mg 07/06/18 13:45 07/06/18 15:25 Nicoderm Patch - TD Not Given DAILY [facility] Home Medications Medication Instructions Recorded Cephalexin [Keflex] 500 mg PO BID #8 capsule 10/12/14 levoFLOXacin [Levaquin -] 500 mg PO DAILY #10 tablet 07/06/18 ASSESSMENT AND PLAN: Patient is a 47 y/o M with PMHx of diverticulitis, psoriasis (not on tx), past admissions for cellulitis, rhabdo, who presents for 1 day hx LLQ pain admitted for acute sigmoid diverticulitis. #Sepsis due to acute sigmoid diverticulitis with microperforation: On IV antibiotics Levaquin and Flagyl continue, surgeon ,will place the patient on clears for now, patient has no pain, Only clears for now, advance to full liquid in am, GI consult apprerciated. IV NS 125 cc/hr #L-sided varicocele incidental findings # chronic constipation w/u as an outpatient #Hx of Psoriasis: stable now. DVT PPX: Lovenox
[2018-07-07] MEDS: NICOTINE 21 MG/24 HOURS TOPICAL PATCH TD SCH ×2 (09:10→17:09)
[2018-07-07] MEDS: ENOXAPARIN NA (PORCINE) 40 MG/0.4 ML DISP.SYRIN SQ SCH (09:10)
--- NOTE | 2018-07-07 13:24 | PN ---
Physical Exam: SUBJECTIVE: Patient seen and examined at bedside. No acute events overnight. Pt' s abdominal pain is much improved. Still is tender, but to deep palpation and is able to move with less pain. Denies f/c, n/v, chest pain, sob. Admits to some watery diarrhea when abd is pressed. OBJECTIVE: Vital Signs Temperature 98.5 F 07/07/18 07:59 Pulse Rate 74 07/07/18 07:59 Respiratory Rate 20 07/07/18 09:00 Blood Pressure 129/80 07/07/18 07:59 O2 Sat by Pulse Oximetry (%) 97 07/07/18 09:00 GENERAL: Resting calmly in bed. Awake, alert, and fully oriented, in no acute distress. HEENT: AT/NC. EOMI. CRISTA. Moist mucus membranes. NECK: Normal range of motion, supple LUNGS: Breath sounds equal, clear to auscultation bilaterally. No wheezes, and no crackles. No accessory muscle use. HEART: Regular rate and rhythm, normal S1 and S2 without murmur, rub or gallop. ABDOMEN: Soft, normoactive bowel sounds. +point tenderness suprapubic region, + LLQ. GENITUOURINARY: L-sided varicocele, nontender. LOWER EXTREMITIES: 2+ pt pulses, warm, well-perfused. No calf tenderness. No peripheral edema. NEUROLOGICAL: Cranial nerves II-XII intact. 5/5 motor strength in UE, LE PSYCHIATRIC: Cooperative. Good eye contact. SKIN: Warm, dry, normal turgor CBC, BMP 07/07/18 06:30 07/07/18 06:30 Active Medications Acetaminophen (Ofirmev Injection -) 1,000 mg IVPB Q8H PRN PRN Reason: pain/fever Last Admin: 07/06/18 18:59 Dose: 1,000 mg Enoxaparin Sodium (Lovenox -) 40 mg SQ DAILY KAYLA Last Admin: 07/07/18 09:10 Dose: 40 mg Sodium Chloride (Normal Saline -) 1,000 mls @ 125 mls/hr IV ASDIR KAYLA Last Admin: 07/07/18 02:00 Dose: 125 mls/hr Metronidazole (Flagyl 500mg Premixed Ivpb -) 500 mg in 100 mls @ 100 mls/hr IVPB Q8H-IV KAYLA Last Admin: 07/07/18 09:10 Dose: 100 mls/hr Levofloxacin (Levaquin 500 Mg Premixed Ivpb -) 500 mg in 100 mls @ 100 mls/hr IVPB DAILY [facility]; Protocol Last Admin: 07/07/18 10:13 Dose: 100 mls/hr Morphine Sulfate (Morphine Sulfate) 2 mg IVPUSH Q4H PRN PRN Reason: PAIN LEVEL 6-10 Nicotine (Nicoderm Patch -) 21 mg TD DAILY [facility] Last Admin: 07/07/18 09:10 Dose: 21 mg CONSULTS Surg- Dr. Castaneda GI- Dr. Lyons IMAGING: * CTAP prelim: sigmoid diverticulitis with microperforation; small focus of air beyond sigmoid diverticulum. without abscess or free air. follow official read * EKG: NSR, without acute ST-T wave changes. Qtc 417ms ASSESSMENT/PLAN: 47 y/o M with PMH diverticulitis, psoriasis (not on tx), past admissions for cellulitis, rhabdo, who presents for 1 day hx LLQ pain admitted for acute sigmoid diverticulitis. #Sepsis 2/2 acute sigmoid diverticulitis, with microperforation -Per surg, cont IV abx and bowel rest; No surg intervention at this time. Start CLD -Per GI, would need outpatient colonoscopy after resolution of diverticulitis to rule out lesion - around 6-8 weeks -Cont Flagyl 500 mg IVPB Q8H, Levaquin 500 mg IVPB QD (started 07/06/18), Day 2 -Morphine 2 Q4H IVP for pain #L-sided varicocele -possibly incidental -chronic constipation a/w diverticulitis can be risk fx L varicocele, affecting L testic vein -f/u as outpatient #Psoriasis -not on tx #Hx of Tobacco use -Nicotine Patch 21 TD QD #F/E/N -IV NS 125 cc/hr -continue to follow lytes -CLD #PPX -Lovenox #dispo -monitor on med-surg Visit type - Emergency Visit Emergency Visit: Yes ED Registration Date: 07/06/18 Care time: The patient presented to the Emergency Department on the above date and was hospitalized for further evaluation of their emergent condition. - New Patient This patient is new to me today: No - Critical Care Critical Care patient: No
--- NOTE | 2018-07-07 15:31 | PN ---
GI Progress Note Subjective: No acute events Found sitting in the [facility] initially Denies abdominal pain from yesterday and states having formed BM's - Objective Vital Signs: Vital Signs Temperature 98.2 F 07/07/18 13:51 Pulse Rate 71 07/07/18 13:51 Respiratory Rate 20 07/07/18 13:51 Blood Pressure 113/64 07/07/18 13:51 O2 Sat by Pulse Oximetry (%) 97 07/07/18 09:00 Constitutional: Calm Eyes: No: Sclera Icterus Cardiovascular: Yes: Regular Rate and Rhythm Respiratory: Yes: CTA Bilaterally Gastrointestinal Inspection: No: Distention ...Auscultate: Yes: Normoactive Bowel Sounds ...Palpate: No: Tenderness ...Percussion: No: Tympanitic Edema: No (No LE edema) Neurological: Yes: Alert Labs: CBC, BMP 07/07/18 06:30 07/07/18 06:30 INR, PTT INR 1.11 (0.83-1.09) H 07/06/18 05:00 - ....Imaging Cat Scan: Report Reviewed, Image Reviewed Problem List - Problems (1) Diverticulitis of colon with perforation Assessment/Plan: With microperforation Currently asymptomatic Advance to full liquids in AM, then as tolerated AM Labs Will need 10 days of antibiotics including days on IV while an inpatient Code(s): K57.20 - DVTRCLI OF LG INT W PERFORATION AND ABSCESS W/O BLEEDING
[2018-07-08] MEDS: SODIUM CHLORIDE 1,000 ML IV SCH (06:17)
[2018-07-08 07:47] LABS: HEMATOCRIT 38.7 % (35.4-49); MCH 31.5 pg (25.7-33.7); MCHC 36.2 g/dl (32.0-35.9); MEAN CELL VOLUME 86.9 fl (80-96); MEAN PLT VOLUME 9.6 fl (7.5-11.1); PLATELET COUNT 157 K/MM3 (134-434); RBC 4.45 M/mm3 (4.00-5.60); WHITE BLOOD COUNT 8.5 K/mm3 (4.0-10.0)
[2018-07-08 07:55] VITALS: TEMP 98.1
[2018-07-08] MEDS: ENOXAPARIN NA (PORCINE) 40 MG/0.4 ML DISP.SYRIN SQ SCH (09:13)
[2018-07-08] MEDS: NICOTINE 21 MG/24 HOURS TOPICAL PATCH TD SCH (10:11)
--- NOTE | 2018-07-08 11:31 | PN ---
Progress Note, Physician History of Present Illness: Pt seen/examined at bedside, feeling well, denies abdominal pain, n/v, fever/ chills. Moved bowels this am, no blood. Tolerating full liquid diet, asking to eat more. - Current Medication List Current Medications: Active Medications Acetaminophen (Ofirmev Injection -) 1,000 mg IVPB Q8H PRN PRN Reason: pain/fever Last Admin: 07/06/18 18:59 Dose: 1,000 mg Enoxaparin Sodium (Lovenox -) 40 mg SQ DAILY KAYLA Last Admin: 07/08/18 09:13 Dose: 40 mg Sodium Chloride (Normal Saline -) 1,000 mls @ 125 mls/hr IV ASDIR KAYLA Last Admin: 07/08/18 06:17 Dose: 125 mls/hr Metronidazole (Flagyl 500mg Premixed Ivpb -) 500 mg in 100 mls @ 100 mls/hr IVPB Q8H-IV KAYLA Last Admin: 07/08/18 09:12 Dose: 100 mls/hr Levofloxacin (Levaquin 500 Mg Premixed Ivpb -) 500 mg in 100 mls @ 100 mls/hr IVPB DAILY [facility]; Protocol Last Admin: 07/08/18 10:30 Dose: 100 mls/hr Morphine Sulfate (Morphine Sulfate) 2 mg IVPUSH Q4H PRN PRN Reason: PAIN LEVEL 6-10 Nicotine (Nicoderm Patch -) 21 mg TD DAILY [facility] Last Admin: 07/08/18 10:11 Dose: Not Given - Objective Vital Signs: Vital Signs Temperature 98.1 F 07/08/18 07:54 Pulse Rate 70 07/08/18 07:54 Respiratory Rate 18 07/08/18 09:00 Blood Pressure 115/80 07/08/18 07:54 O2 Sat by Pulse Oximetry (%) 96 07/08/18 09:00 Constitutional: Yes: Well Nourished, No Distress, Calm Cardiovascular: Yes: WNL, Regular Rate and Rhythm Respiratory: Yes: WNL, Regular, CTA Bilaterally Gastrointestinal: Yes: WNL, Normal Bowel Sounds, Soft, Other (Abd soft, nt, nd) Labs: CBC, BMP 07/08/18 06:30 07/07/18 06:30 INR, PTT INR 1.11 (0.83-1.09) H 07/06/18 05:00 Problem List - Problems (1) Diverticulitis of colon with perforation Assessment/Plan: 47 yo male reported h/o diverticulitis 8-9 years ago, presents with abdominal pain with CT evidence of sigmoid diverticulitis with microperforation on levaquin and flagyl. Pt feeling well, abdominal pain resolved. No fever, wcc normalized. -Continue conservative measures -Advance diet as tolerated -Continue course of antibiotics -Pt will require GI follow up on discharge and colonoscopy in 6-8 weeks. Code(s): K57.20 - DVTRCLI OF LG INT W PERFORATION AND ABSCESS W/O BLEEDING
[2018-07-08 13:34] VITALS: BP 132/81; PULSE 62
--- NOTE | 2018-07-08 14:49 | PN ---
Teaching Attending Note Name of Resident: Juan Stewart ATTENDING PHYSICIAN STATEMENT I saw and evaluated the patient. I reviewed the resident's note and discussed the case with the resident. I agree with the resident's findings and plan as documented. SUBJECTIVE: No fever ro chills. No abd pain. tolerated diet . OBJECTIVE: NAD Cv : RRR Lungs: CTAB Ext : no edema . psoriasis lesions on legs and knees Abd: soft, NT, ND < NL BS , NT ASSESSMENT AND PLAN: 47 y/o man with psoriasis who presented with Abd pain and was found to have diverticulitis with Microperforation doing well now tolerated diet dc home with levaquin and flagyl for next 7 days to complete 7 more days . QTc 417. f/u with GI for colo instructed to avoid constipation f.u with uro for varicocele.
--- NOTE | 2018-07-08 15:04 | DS ---
Physical Exam: SUBJECTIVE: Patient seen and examined at bedside. No acute events overnight. OBJECTIVE: Vital Signs Period Temp Pulse Resp BP Sys/Giraldo Pulse Ox Last 24 Hr 97.8 F-98.1 F 62-80 18-20 106-132/63-85 96-97 PHYSICAL EXAM GENERAL: Resting calmly in bed. Awake, alert, and fully oriented, in no acute distress. HEENT: AT/NC. EOMI. CRISTA. Moist mucus membranes. NECK: Normal range of motion, supple LUNGS: Breath sounds equal, clear to auscultation bilaterally. No wheezes, and no crackles. No accessory muscle use. HEART: Regular rate and rhythm, normal S1 and S2 without murmur, rub or gallop. ABDOMEN: Soft, normoactive bowel sounds. +point tenderness suprapubic region, + LLQ. GENITUOURINARY: L-sided varicocele, nontender. LOWER EXTREMITIES: 2+ pt pulses, warm, well-perfused. No calf tenderness. No peripheral edema. NEUROLOGICAL: Cranial nerves II-XII intact. 5/5 motor strength in UE, LE PSYCHIATRIC: Cooperative. Good eye contact. SKIN: Warm, dry, normal turgor LABS Laboratory Results - last 24 hr 07/08/18 06:30 WBC 8.5 RBC 4.45 Hgb 14.0 Hct 38.7 MCV 86.9 MCH 31.5 MCHC 36.2 H RDW 13.0 Plt Count 157 MPV 9.6 HOSPITAL COURSE: Date of Admission:07/06/18 IMAGING: * CTAP: Acute sigmoid diverticulitis with microperforation; small focus of air beyond sigmoid diverticulum. without abscess or free air. * Scrotal U/S: Small L-sided varicocele. * EKG: NSR, without acute ST-T wave changes. Qtc 417ms 47 y/o M with PMH diverticulitis, psoriasis (not on tx) presented with LLQ pain admitted for acute sigmoid diverticulitis. Due to past hx of diverticulitis, pt was started on IV Levaquin and Flagyl. CTAP was done that showed acute sigmoid diverticulitis with microperforation. As a result, pt was placed on bowel rest until resolution of pain symptoms. GI was consulted for further evaluation and was subsequently given recommendation to obtain a colonoscopy in 6-8 weeks as an outpatient follow up. Additionally, pt complained of L sided scrotal swelling after which a scrotal ultrasound was ordered. Scrotal u/s results showed L sided varicocele. During hospital course, pt's abdominal pain symptoms improved. He was started back on a diet and remained asymptomatic. He was discharged home with instructions to continue taking PO Levaquin and Flagyl for 7 more days and advised to follow up with his PCP and GI doctor. He was also advised to follow up with the urologist for follow up of his L sided varicocele. Date of Discharge: 07/08/18 Minutes to complete discharge: 30 Discharge Summary Reason For Visit: DIVERTICULITIS OF LARGE INTESTINE WITH PERFORATION Condition: Improved - Instructions Diet, Activity, Other Instructions: You were seen in the hospital for complaints of abdominal pain. In the hospital, a CT of the abdomen was done that showed you have acute diverticulitis with a small perforation. As a result, you were given IV antibiotics. You were monitored with bowel rest for your symptoms. You were evaluated by a GI doctor and not found to have any need for surgical intervention. After your abdominal pain improved, you were started on a diet. Your symptoms improved throughout your hospital course. You are being discharged home. MEDICATION INSTRUCTIONS Please TAKE Levaquin 500 mg once a day starting TOMORROW morning for the next 7 days. Your last dose will be on July 15, 2018. Please TAKE Flagyl 500 mg three times a day. Please take your first dose tonight at 5pm for the next 7 days. Your last dose will be on July 15, 2018. REFERRALS Please follow up with your primary care physician., Dr. Surendra Lockhart within 1 week. You will need outpatient follow up for your left-sided varicocele ( enlarge testicular veins). Please follow up with your GI doctor, Dr. Lyons. You will need a colonoscopy within 6-8 weeks. Please follow up with a urologist for your varicocele. You are given a referral to see Dr. Guzman. If you experience worsening abdominal pain, fever/chills, shortness of breath, chest pain, or significant bowel problems, please proceed to your nearest emergency room immediately. Referrals: Greg Lyons DO [Staff Physician] - 1 Week Payam Guzman MD [Staff Physician] - 1 Week Karlie Flores MD [Primary Care Provider] - 1 Week Disposition: HOME - Home Medications Comprehensive Discharge Medication List: Ambulatory Orders Levofloxacin [Levaquin] 500 mg PO DAILY #7 tablet 07/08/18 Metronidazole 500 mg PO TID #22 tablet 07/08/18 This patient is new to me today: No Emergency Visit: Yes ED Registration Date: 07/06/18 Care time: The patient presented to the Emergency Department on the above date and was hospitalized for further evaluation of their emergent condition. Critical Care patient: No - Discharge Referral Referred to [facility] Med P.C[facility] Yes Physician Referral: Reynaldo Lyons DO (GI)
== END 2018-07-08 15:43 | disposition home or self-care (01) | DRG 872 ==
LOC: JER 21:43 → JERBED 07-06 01:56 → J8W 07-06 07:42 → J7W 07-06 23:38
PROVIDERS: ADMIT Internal Medicine; ATTEND Internal Medicine
DX: A41.9 Sepsis, unspecified organism (principal); K57.20 Diverticulitis of large intestine with perforation and abscess without bleeding; L40.9 Psoriasis, unspecified; F17.210 Nicotine dependence, cigarettes, uncomplicated; F12.10 Cannabis abuse, uncomplicated; I86.1 Scrotal varices; E66.9 Obesity, unspecified; Z68.31 Body mass index [BMI] 31.0-31.9, adult; K59.00 Constipation, unspecified
CPT/HCPCS: 36415; 74177-TC; 76870-TC; 80048; 80053; 81003; 83735; 84100; 85025; 85027; 85610; 85730; 86850; 86900; 86901; 87086; 93005; 93010; 99283-25; J0131; J7030

== ENCOUNTER 2021-09-05 16:56 | Emergency (ER) | payer BC ==
[2021-09-05 17:10] VITALS: BP 138/90; BMI 36.9
[2021-09-05] MEDS ORDERED: ACETAMINOPHEN INJECTION 100 ML IVPB ONE (18:25)
[2021-09-05] MEDS ORDERED: ACETAMINOPHEN 1000 MG/100 ML BAG IVPB ONE (18:26)
[2021-09-05] MEDS ORDERED: SODIUM CHLORIDE 0.9% 500 ML INFUS.BAG IV ONE (18:26)
[2021-09-05 19:09] LABS: BASO % 0.5 % (0-2.0); EOS % 0.7 % (0-4.5); HEMATOCRIT 49.8 % (35.4-49); HEMOGLOBIN 17.2 GM/dL (11.7-16.9); LYMPH % 9.4 % (8-40); MCHC 34.5 g/dl (32.0-35.9); MEAN PLT VOLUME 9.1 fl (7.5-11.1); MONO % 3.3 % (3.8-10.2); NEUT % 86.1 % (42.8-82.8); RBC 5.73 M/mm3 (4.00-5.60); RDW 13.7 % (11.9-15.9); WHITE BLOOD COUNT 11.3 K/mm3 (4.0-10.0)
[2021-09-05 19:28] LABS: PLATELET COUNT 190 10^3/uL (134-434)
[2021-09-05 19:36] LABS: BLOOD UREA NITROGEN 18.5 mg/dL (7-18); CALCIUM 8.8 mg/dL (8.5-10.1)
[2021-09-05 19:37] LABS: ALBUMIN 4.1 g/dl (3.4-5.0)
[2021-09-05 19:40] LABS: CREATININE 1.1 mg/dL (0.55-1.3)
[2021-09-05 19:41] LABS: BILIRUBIN,TOTAL 0.5 mg/dL (0.2-1); TOT PROT 7.3 g/dl (6.4-8.2)
[2021-09-05 20:25] LABS: URINE APPEARANCE CLEAR; URINE BILIRUBIN NEGATIVE (NEGATIVE); URINE COLOR YELLOW; URINE GLUCOSE (UA) NEGATIVE (NEGATIVE); URINE KETONE NEGATIVE (NEGATIVE); URINE LEUK ESTERASE NEGATIVE (NEGATIVE); URINE NITRITE NEGATIVE (NEGATIVE); URINE PROTEIN NEGATIVE (NEGATIVE)
[2021-09-05 20:48] VITALS: PULSE 95; TEMP 98.4
== END 2021-09-05 21:03 | disposition left against medical advice (07) ==
LOC: JER 16:56
PROC: 3E033GC Introduction of Other Therapeutic Substance into Peripheral Vein, Percutaneous Approach (ICD-10-PCS; principal; 2021-09-05)
DX: G45.4 Transient global amnesia (principal); R50.9 Fever, unspecified
CPT/HCPCS: 36415; 70450-TC; 71045-TC-FY; 80053; 81003; 83605; 84484; 85025; 87040; 87077; 87086; 87804; 93005; 93010; 99285-25; C9803-CS; U0003; U0005